=== PATIENT | female | born 1980 | race Caucasian/White ===

== ENCOUNTER 2017-02-04 11:15 | Emergency (ER) | payer OTHER ==
[~2017-02-04] VITALS: Ht 157.5 cm; Wt 95.0 kg
[~2017-02-04 11:15] MED LIST: BACT2OIN TOP; CHOL50006 PO; TRAM50 PO
[2017-02-04 11:17] VITALS: BP 160/91; PULSE 73; RESP 20; TEMP 98.1; O2SAT 100
[2017-02-04] MEDS ORDERED: VENL37.595 PO (11:25)
[2017-02-04] MEDS ORDERED: LOSA25TA PO (11:25)
[2017-02-04 11:30] VITALS: RESP 18; O2SAT 100
[2017-02-04] MEDS ORDERED: ONDANSETRON HCL 4 MG/2 ML VIAL IV PUSH ONE (11:30)
[2017-02-04] MEDS ORDERED: SODIUM CHLORIDE 0.9% FLUSH 10 ML FLUSH IVF PRN (11:30)
[2017-02-04] MEDS ORDERED: CLINDAMYCIN 600 MG PREMIX 50 ML IV ONE (11:30)
[2017-02-04] MEDS ORDERED: MORPHINE SULFATE 4 MG/ML INJ IV PUSH ONE (11:30)
[2017-02-04 11:42] LABS: AUTOMATED NEUTROPHIL # 3.5 TH/MM3 (1.8-7.7); BASOPHIL % 0.6 % (0.0-2.0); EOSINOPHIL # 0.1 TH/MM3 (0-0.4); EOSINOPHIL % 1.9 % (0.0-4.0); HEMATOCRIT 38.7 % (35.0-46.0); LYMPHOCYTE # 2.6 TH/MM3 (1.0-4.8); MEAN CELL VOLUME 99.4 FL (80.0-100.0); MEAN CORPUSCULAR HEMOGLOBIN 34.5 PG (27.0-34.0); MEAN CORPUSCULAR HGB CONC 34.7 % (32.0-36.0); NEUT % 51.5 % (16.0-70.0); PLATELET COUNT 250 TH/MM3 (150-450); RED CELL DISTRIBUTION WIDTH 12.9 % (11.6-17.2); WHITE BLOOD COUNT 6.8 TH/MM3 (4.0-11.0)
[2017-02-04 11:52] LABS: INTERNATIONAL NORMALIZED RATIO 0.9 RATIO; PROTHROMBIN TIME - PATIENT 10.3 SEC (9.8-11.6)
--- NOTE | 2017-02-04 11:54 | RADRPT ---
EXAM DATE/TIME: 02/04/2017 11:37 [place] COMPARISON: No previous studies available for comparison. INDICATIONS : Cut between index finger and middle finger with band saw. MEDICAL HISTORY : None. SURGICAL HISTORY : None. ENCOUNTER: Initial ACUITY: 1 day PAIN SCORE: 10/10 LOCATION: Left hand FINDINGS: Three view examination of the left hand demonstrates no dislocation or fracture. There is no signific ant soft tissue emphysema or radiopaque foreign body. The carpal bones appear intact. The interphala ngeal and metacarpophalangeal joints are intact. Bony mineralization is normal. CONCLUSION: 1. No acute fracture or dislocation. 2. No radiopaque foreign body. Aftab Seymour MD on February 04, 2017 at 11:51 Board Certified Radiologist. This report was verified electronically.
[2017-02-04] MEDS ORDERED: LIDOCAINE HCL 1% 50 ML VIAL ONE (11:55)
--- NOTE | 2017-02-04 11:57 | PD ---
HPI Chief Complaint: Laceration/Skin Injury Time Seen by Provider: 11:21 Travel History International Travel<30 days: No Contact w/Intl Traveler<30days: No Traveled to known affect area: No History of Present Illness HPI 36-year-old female came to the emergency room with history of accidental injury with a table saw at work today 1 hour prior to arrival. She has a deep laceration at the base of her left middle finger. When EMS arrived patient was washing her wound under the sink. Patient received some pain medication en route. She tells me that her pain currently 7 out of 10. Her last tetanus shot was within this year. She is otherwise a healthy person. She has been unable to move her middle finger. [facility] Past Medical History Narrative Medical List of her past medical, surgical, social and family history is reviewed from the nursing note. Diabetes: No Headaches: Yes Hypertension: Yes Tetanus Vaccination: < 5 Years Influenza Vaccination: Yes ?: Not LMP: 01/27/17 Menopausal: No Past Surgical History Appendectomy: Yes Social History Alcohol Use: No Tobacco Use: No Substance Use: No Allergies-Medications (Allergen,Severity, Reaction): Coded Allergies: cephalexin (Unverified Allergy, Severe, HIVES, 02/04/17) latex (Verified Allergy, Severe, Rash, 02/12/17) methocarbamol (Unverified Allergy, Severe, SOB, 02/04/17) Comments List of her allergies reviewed from the nursing note Reported Meds & Prescriptions Reported Meds & Active Scripts Active Clindamycin (Clindamycin HCl) 150 Mg Cap 150 Mg PO Q6H 10 Days Reported Losartan (Losartan Potassium) 25 Mg Tab 25 Mg PO DAILY Venlafaxine ER 24 HR (Venlafaxine HCl) 37.5 Mg Cap 37.5 Mg PO DAILY Narrative Medication List of her home medications reviewed from the nursing note Review of Systems Except as stated in HPI: all other systems reviewed are Neg Physical Exam Narrative GENERAL: Awake, alert, moderate distress SKIN: Focused skin assessment warm/dry. HEAD: Atraumatic. Normocephalic. EYES: Pupils equal and round. No scleral icterus. No injection or drainage. ENT: No nasal bleeding or discharge. Mucous membranes pink and moist. NECK: Trachea midline. No JVD. CARDIOVASCULAR: Regular rate and rhythm. No murmur appreciated. RESPIRATORY: No accessory muscle use. Clear to auscultation. Breath sounds equal bilaterally. GASTROINTESTINAL: Abdomen soft, non-tender, nondistended. Hepatic and splenic margins not palpable. MUSCULOSKELETAL: No obvious deformities. Large laceration that covers 180 around the base of the left middle finger. Normal flexion or extension of the joint mainly probably from pain. No active bleeding. The distal tip of the finger has a cap refill of 2 seconds. No clubbing. No cyanosis. No edema. NEUROLOGICAL: Awake and alert. No obvious cranial nerve deficits. Motor grossly within normal limits. Normal speech. PSYCHIATRIC: Appropriate mood and affect; insight and judgment normal. Data Data Last Documented VS Orders Orders Basic Metabolic Panel (Bmp) (02/04/17 11:21) Complete Blood Count With Diff (02/04/17 11:21) Prothrombin Time / Inr (Pt) (02/04/17 11:21) Iv Access Insert/Monitor (02/04/17 11:21) Ecg Monitoring (02/04/17 11:21) Oximetry (02/04/17 11:21) Oxygen Administration (02/04/17 11:21) Morphine Inj (Morphine Inj) (02/04/17 11:30) Ondansetron Inj (Zofran Inj) (02/04/17 11:30) Sodium Chloride 0.9% Flush (Ns Flush) (02/04/17 11:30) Hand, Complete ([id number]) (02/04/17 ) Clindamycin 600 Mg Premix (Cleocin 600 M (02/04/17 11:30) Lidocaine 1% Inj (50 Ml) (Xylocaine 1% I (02/04/17 11:55) Ed Discharge Order (02/04/17 13:56) Splinting (02/04/17 ) Fiberglass Splint Forearm Adul (02/04/17 ) Sling Cradle Arm (02/04/17 ) Labs Laboratory Tests Test 02/04/17 11:30 White Blood Count 6.8 TH/MM3 Red Blood Count 3.90 MIL/MM3 Hemoglobin 13.4 GM/DL Hematocrit 38.7 % Mean Corpuscular Volume 99.4 FL Mean Corpuscular Hemoglobin 34.5 PG Mean Corpuscular Hemoglobin Concent 34.7 % Red Cell Distribution Width 12.9 % Platelet Count 250 TH/MM3 Mean Platelet Volume 8.9 FL Neutrophils (%) (Auto) 51.5 % Lymphocytes (%) (Auto) 39.0 % Monocytes (%) (Auto) 7.0 % Eosinophils (%) (Auto) 1.9 % Basophils (%) (Auto) 0.6 % Neutrophils # (Auto) 3.5 TH/MM3 Lymphocytes # (Auto) 2.6 TH/MM3 Monocytes # (Auto) 0.5 TH/MM3 Eosinophils # (Auto) 0.1 TH/MM3 Basophils # (Auto) 0.0 TH/MM3 CBC Comment AUTO DIFF Differential Comment AUTO DIFF CONFIRMED Prothrombin Time 10.3 SEC Prothromb Time International Ratio 0.9 RATIO Blood Urea Nitrogen 15 MG/DL Creatinine 0.56 MG/DL Random Glucose 87 MG/DL Calcium Level 7.6 MG/DL Sodium Level 139 MEQ/L Potassium Level 3.6 MEQ/L Chloride Level 108 MEQ/L Carbon Dioxide Level 22.8 MEQ/L Anion Gap 8 MEQ/L Estimat Glomerular Filtration Rate 124 ML/MIN MDM Medical Decision Making Medical Screen Exam Complete: Yes Emergency Medical Condition: Yes Medical Record Reviewed: Yes Differential Diagnosis Partial amputation, open fracture, tendon laceration Narrative Course 11:56 AM I looked at the x-ray and I do not see any fracture. Awaiting for the report. Patient is getting IV clindamycin and medicated for pain. There is no hand coverage. There is a plastic coverage and the physician Dr. Trimble has been called twice over the past 40 minutes. I will do a digital block and explored for any tendon lacerations. 1:41 PM I discussed the case with the plastic surgeon Dr. Trimble who is from [place] and is covering for plastics today and call back. He said he would be able to take care of the laceration. Patient needs to call their office and see if she can be seen. I will discharge her. Procedures Procedure Narrative LACERATION LOCATION: Base of left middle finger palmar surface LENGTH: 6cm NUMBER OF STITCHES/DANELLE: 8 REPAIR: The area of the laceration was prepped with Betadine and sterilely draped. The laceration was infiltrated with 5 ml of 1% Lidocaine. The wound was copiously irrigated and explored without evidence of foreign body, tendon injury or neurovascular injury. The wound was closed using 3. 0 Prolene. This was a single layer repair. A sterile dressing was applied. The patient was advised to keep the dressing clean and dry. Patient tolerated the procedure well. LACERATION LOCATION: Left hand ring finger palmar surface proximal phalanx LENGTH: 2 cm NUMBER OF STITCHES/DANELLE: 2 REPAIR: The area of the laceration was prepped with Betadine and sterilely draped. The laceration was infiltrated with 3 ML of lidocaine. The wound was copiously irrigated and explored without evidence of foreign body, tendon injury or neurovascular injury. The wound was closed using 3-0 Prolene. This was a single layer repair. A sterile dressing was applied. The patient was advised to keep the dressing clean and dry. Patient tolerated the procedure well. Digital block was done at the base of the left middle and left ring finger for the laceration repair with 1% lidocaine. A total of 8 mL was used between the 2 fingers. Patient tolerated the procedure well. EKG Prior to Arrival: No Physician Communication Physician Communication Dr. Lu Diagnosis Primary Impression: Tendon laceration Additional Impressions: Finger laceration Qualified Codes: S61.213A - Laceration without foreign body of left middle finger without damage to nail, initial encounter Finger laceration involving tendon Qualified Codes: S61.219A - Laceration without foreign body of unspecified finger without damage to nail, initial encounter; S66.929A - Laceration of unspecified muscle, fascia and tendon at wrist and hand level, unspecified hand , initial encounter Additional Instructions: Please follow-up with Dr. Trimble at address Plastics Surgery, [facility], ( [facility]), [facility] [place] [address], office telephone #[phone]. Please call them today before the office closes to get an appointment as soon as possible. Keep the hand in the splint. Take the antibiotic as per the prescription direction. Return to the ER if the condition worsens or any other new concerns. You should be seen by the plastic surgeon as soon as possible for your tendon repair. Med/Other Pt SpecificInfo: Prescription(s) given Scripts Clindamycin (Clindamycin) 150 Mg Cap 150 MG PO Q6H for Infection for 10 Days, #40 CAP 0 Refills Prov: Catracho Sol MD 02/04/17 Disposition: 01 DISCHARGE HOME Condition: Stable Yolis Solnti R. MD Feb 04, 2017 11:57
[2017-02-04 12:00] LABS: BICARBONATE 22.8 MEQ/L (21.0-32.0); POTASSIUM 3.6 MEQ/L (3.5-5.1)
[2017-02-04 12:01] LABS: HEMO FLAGS AUTO DIFF
[2017-02-04 12:20] LABS: SCAN/DIFF AUTO DIFF CONFIRMED
[2017-02-04] MEDS ORDERED: CLIN150C14 PO (13:56)
[2017-02-04] MEDS ORDERED: HYDR-3516 PO (13:59)
[2017-02-04] MEDS ORDERED: COLA100C5 PO (13:59)
[2017-02-18] MEDS ORDERED: IBUP1TAB7 PO (09:16)
== END 2017-02-04 15:25 | disposition home or self-care (01) ==
LOC: NEPC 11:15
DX: S61.213A Laceration without foreign body of left middle finger without damage to nail, initial encounter (principal); S61.215A Laceration without foreign body of left ring finger without damage to nail, initial encounter; I10 Essential (primary) hypertension; W31.2XXA Contact with powered woodworking and forming machines, initial encounter; Z79.899 Other long term (current) drug therapy
CPT/HCPCS: 12004; 73130; 80048; 85025; 85610; 96365; 96375; 99284; J2270; J2405

== ENCOUNTER 2017-02-12 14:17 | Day surgery (SDC) | payer OTHER ==
[~2017-02-12] VITALS: Ht 157.5 cm; Wt 96.0 kg
[~2017-02-12 14:17] MED LIST changes: -BACT2OIN TOP; +BUPIVACAINE HCL PF 0.5% 30 ML VIAL ONE; -CHOL50006 PO; +CLIN150C14 PO; +KETOROLAC TROMETHAMINE 30 MG/ML (IVP) VIAL IV PUSH ONE; +LIDOCAINE HCL 1% PF 5 ML SYRINGE OTHER ONE; +LIDOCAINE HCL 2% 50 ML VIAL ONE; +LOSA25TA PO; +MIDAZOLAM HCL 2 MG/2 ML VIAL IV ONE; +NEOMYCIN/POLYMYXIN 1 ML G.U. IRRIGANT ONE; +PHENYLEPH/NS 1000 MCG/10 ML SYR IV ONE; +PROPOFOL 200 MG/20 ML AMP IV ONE; -TRAM50 PO; +VENL37.595 PO; +ePHEDrine/NS 25 MG/5 ML SYR IV ONE
[2017-02-12] MEDS ORDERED: SODIUM CHLORID 0.9% 500 ML IV PRN (15:00)
[2017-02-12] MEDS ORDERED: CIPROFLOXACIN/DEXT 400 MG/200 ML IV SCH (15:00)
[2017-02-12] MEDS ORDERED: POVIDONE IODINE 5% (ANTISEPSIS KIT) 4 APPLICATIONS EACH NARE PRN (15:00)
[2017-02-12] MEDS ORDERED: LACTATED RINGER'S 1000 ML IV PRN (15:00)
[2017-02-12] MEDS ORDERED: METOPROLOL TARTRATE 25 MG TAB PO PRN (15:00)
[2017-02-12] MEDS ORDERED: CHLORHEXIDINE GLUCONATE 2 % 1 PACK (2 CLOTHS) TOPICAL PRN (15:00)
[2017-02-12] MEDS ORDERED: NEOMYCIN/POLYMYXIN 1 ML G.U. IRRIGANT IRRIGATION ONE (17:16)
[2017-02-12] MEDS ORDERED: *ONDANSETRON 4 MG VIAL PERIprocedural Use ONLY ONE (18:51)
[2017-02-12] MEDS ORDERED: HYDR-3288 PO (18:54)
[2017-02-12] MEDS ORDERED: MEPERIDINE HCL 25 MG/ML VIAL IM PRN (19:30)
[2017-02-12] MEDS ORDERED: ACETAMINOPHEN/HYDROcodone 325 MG/5 MG TAB PO PRN (19:30)
[2017-02-12 20:10] VITALS: BP 119/76; PULSE 90; RESP 14; TEMP 98; O2SAT 94
--- NOTE | 2017-02-13 06:36 | MP ---
cc: LEVI MAIN III, M.D. DATE OF OPERATION 02/12/2015 PREOPERATIVE DIAGNOSIS Left middle finger and ring finger lacerations with flexor tendon and digital nerve injuries. PROCEDURES 1. Left middle finger exploration. 2. Left middle finger FDP tendon repair. 3. Left middle finger FDS tendon repair. 4. Left middle finger radial digital nerve repair. 5. Left middle finger ulnar digital nerve repair. 6. Left middle finger A1 lacho release. 7. Left ring finger exploration and penetrating injury. SURGEON Levi Main III, MD PROCEDURE The patient was placed supine on the operating room table. After the correct site and side of the surgery were verified by members of each team in the room multiple times including the patient and myself and after adequate preoperative markings and preoperative written consent were verified by everyone and after adequate preoperative time-out was performed to everyone's satisfaction, after adequate general anesthesia had been achieved, the left upper extremity was prepped and draped in the traditional sterile surgical fashion. A 50/50 mixture of 2% plain lidocaine and 0.5% plain Marcaine was infiltrated in the skin and subcutaneous tissue at the level of the metacarpal to create the third and fourth digital blocks. The limb was exsanguinated with an Rico wrap and a highly placed, well-padded axillary tourniquet was inflated to 200 mmHg for a total of 65 minutes. The sutures were removed. Cultures were obtained and passed off the field as a specimen. Exploration revealed complete transection of both flexor tendons of the middle fingers and the radial and ulnar digital nerves. It appeared that the digital arteries were also transected but somehow the fingers still had blood flow. The A2 lacho was also injured so this was reconstructed at the end of the case. Thorough irrigation with saline was performed. Incisions to enhance exposure were made proximally into the palm. A large flap was made and retracted. The and nerves were isolated and dissected but left in situ. The A1 lacho had to be divided to retract the FDS and the FDS tendons. These were brought out into the finger and a four core strand 2-0 Prolene end-to-end repair was made first on the FDP and then the FDS was repaired using 3-0 Prolene sutures in separate [id number] fashion. The FDP tendon was reinforced. There was minimal bunching at the end. The A2 lacho remnants were reapproximated and had to be lengthened and this was done with 4-0 Prolene sutures on a tapered needle. Thorough irrigation was performed multiple times. Tenodesis was performed on passive range of motion examination and it was intact. An end-to-end repair of both the ulnar and radial digital nerves was done using multiple 8-0 nylon sutures in perineural fashion. Thorough irrigation was performed multiple times. The skin edges were debrided and reapproximated using multiple interrupted and running 5-0 chromic sutures. The fourth finger was explored and there was no injury. Down to any vital structure. The hand and arm were thoroughly cleansed and dried. Additional local anesthetic was injected for postoperative pain control. The axillary tourniquet had already been released prior to the final closure and the hand and all the fingers on left including the middle finger became immediately soft, pink, warm and had brisk capillary refill of less than 2 seconds. Betadine and Adaptic dressing was applied on top of the wounds, followed by a bulky short-arm dorsal blocking splint keeping the hand in an ice cream scoop configuration. The thumb was left free. The patient was awakened from anesthesia and transported to the Post-Anesthesia Care Unit awake and in stable condition at the end of the case. Sponge, needle and instrument counts were correct at the end of the case as reported by the nurses in the room. MD SANJAY Smith III/MANJEET /6:54 PM /6:20 AM
[2017-02-18] MEDS ORDERED: IBUP1TAB7 PO (09:16)
== END 2017-02-12 20:10 | disposition home or self-care (01) ==
LOC: HSDC 14:17
PROVIDERS: ATTEND Orthopaedic Surgery Hand Surgery
DX: S66.802A Unspecified injury of other specified muscles, fascia and tendons at wrist and hand level, left hand, initial encounter (principal); S64.493A Injury of digital nerve of left middle finger, initial encounter; S61.215A Laceration without foreign body of left ring finger without damage to nail, initial encounter; B95.8 Unspecified staphylococcus as the cause of diseases classified elsewhere; I10 Essential (primary) hypertension; W31.2XXA Contact with powered woodworking and forming machines, initial encounter
CPT/HCPCS: 01810; 20103; 26356; 64831; 86403; 87015; 87070; 87077; 87102; 87116; 87186; 87205; 87206; J0744; J1885; J2250; J2370; J2405; J3010; J7120